=== PATIENT | male | born 1960 | race Caucasian/White ===

== ENCOUNTER 2017-05-25 21:49 | Emergency (ER) | payer BC ==
[~2017-05-25] VITALS: Ht 185.4 cm; Wt 81.4 kg
[2017-05-25] MEDS ORDERED: MOTRIN800 MG PO (23:57)
[2017-05-26 00:08] VITALS: BP 139/81
== END 2017-05-26 00:12 | disposition home or self-care (01) ==
LOC: EME 21:49 → RME 21:49
DX: M79.662 Pain in left lower leg (principal); R60.0 Localized edema; K21.9 Gastro-esophageal reflux disease without esophagitis; F32.9 Major depressive disorder, single episode, unspecified; Z88.0 Allergy status to penicillin
CPT/HCPCS: 93971; 99281; 99283